=== PATIENT | male | born 1995 | race Caucasian/White ===

== ENCOUNTER 2017-12-22 13:29 | Emergency (ER) | payer BC ==
[2017-12-22] MEDS ORDERED: Tetan/Diph/Pertus SYR(Tdap)* 0.5 ML SYR(BOOSTRIX) use SYR IM ONE (16:38)
--- NOTE | 2017-12-22 17:17 | RAD ---
Indication: Laceration to the top of the patella. Pain and decreased range of motion. Comparison: No relevant prior exams available on the [facility] for comparison. Technique: AP and lateral views RIGHT knee. REPORT AND IMPRESSION: Anterior soft tissue swelling and subtle skin contour irregularity anterior to the patella consistent with history of laceration. No subcutaneous emphysema or conspicuous foreign body evident. Negative for joint effusion, fracture, or malalignment.
[2017-12-22 18:14] VITALS: BP 132/77
--- NOTE | 2017-12-23 10:55 | ED ---
Jenise Puckett Edward, scribed for Jesse Middleton MD on 12/22/17 at 1553 . Lower Extremity - HPI Summary HPI Summary: 22 y/o male presents to the ED c/o R knee laceration s/p sledding accident earlier today. Pt states there is no pain at rest, aggravated with movement. Pt fell off the side of the road while sledding. - History of Current Complaint Chief Complaint: EDExtremityLower Stated Complaint: RT KNEE INJURY Time Seen by Provider: 12/22/17 14:58 Hx Obtained From: Patient Pain Intensity: 2 PMH/Surg Hx/FS Hx/Imm Hx Previously Healthy: No Endocrine/Hematology History: Denies: Hx Diabetes Cardiovascular History: Denies: Hx Myocardial Infarction - Surgical History Surgery Procedure, Year, and Place: APPY Infectious Disease History: No Infectious Disease History: Denies: Traveled Outside the [place] in Last 30 Days - Family History Known Family History: Positive: None - Social History Alcohol Use: None Hx Substance Use: Yes Substance Use Type: Reports: Marijuana Review of Systems Constitutional: Negative Eyes: Negative ENT: Negative Cardiovascular: Negative Respiratory: Negative Gastrointestinal: Negative Genitourinary: Negative Positive: Arthralgia - R knee pain with movement Positive: Other - R knee laceration Neurological: Negative Psychological: Normal All Other Systems Reviewed And Are Negative: Yes Physical Exam - Summary Physical Exam Summary: VITAL SIGNS: Reviewed. GENERAL: Patient is a well-developed and nourished male who is lying comfortable in the stretcher. Patient is not in any acute respiratory distress. HEAD AND FACE: No signs of trauma. No ecchymosis, hematomas or skull depressions. No sinus tenderness. EYES: PERRLA, EOMI x 2, No injected conjunctiva, no nystagmus. EARS: Hearing grossly intact. Ear canals and tympanic membranes are within normal limits. MOUTH: Oropharynx within normal limits. NECK: Supple, trachea is midline, no adenopathy, no JVD, no carotid bruit, no c- spine tenderness, neck with full ROM. CHEST: Symmetric, no tenderness at palpation LUNGS: Clear to auscultation bilaterally. No wheezing or crackles. CVS: Regular rate and rhythm, S1 and S2 present, no murmurs or gallops appreciated. ABDOMEN: Soft, non-tender. No signs of distention. No rebound no guarding, and no masses palpated. Bowel sounds are normal. EXTREMITIES: FROM in all major joints, no edema, no cyanosis or clubbing. NEURO: Alert and oriented x 3. No acute neurological deficits. Speech is normal and follows commands. SKIN: Skin laceration @ R knee w/ full ROM. Slight TTP. Triage Information Reviewed: Yes Vital Signs On Initial Exam: Initial Vitals Temp Pulse Resp BP Pulse Ox 98.6 F 108 16 146/81 100 12/22/17 13:39 12/22/17 13:39 12/22/17 13:39 12/22/17 13:39 12/22/17 13:39 Vital Signs Reviewed: Yes Procedures - Laceration/Wound Repair 1 Location: lower extremity - R knee Description: Linear Anesthesia: Lido Irrigated w/ Saline (ccs): 500 Laceration/Wound Explored: clean Closure: Single Layer Suture Type: Other - Ethylon Number of Sutures: 8 Diagnostics - Vital Signs Vital Signs Temp Pulse Resp BP Pulse Ox 12/22/17 13:39 98.6 F 108 16 146/81 100 - Laboratory Lab Statement: Any lab studies that have been ordered have been reviewed, and results considered in the medical decision making process. - Radiology KNEE XR Xray Interpretation: Positive (See Comments) - Anterior soft tissue swelling and subtle skin contour irregularity anterior to the patella consistent with history of laceration. No subcutaneous emphysema or conspicuous foreign body evident. Negative for joint effusion, fracture, or malalignment. Radiology Interpretation Completed By: Radiologist Lower Extremity Course/Dx - Course Assessment/Plan: 22 y/o male presents to the ED c/o R knee laceration s/p sledding accident earlier today. Pt states there is no pain at rest, aggravated with movement. Pt fell off the side of the road while sledding. KNEE XR SHOWS Anterior soft tissue swelling and subtle skin contour irregularity anterior to the patella consistent with history of laceration. No subcutaneous emphysema or conspicuous foreign body evident. Negative for joint effusion, fracture, or malalignment. Using sterile techniques I irrigated the wound with 500 cc, I put 8 sutures 4-0 ethylon after infiltrating wound with lidocaine without epi 5 cc s. Pt was given tetanus vaccine booster. Pt was d/c home with f/u with PCP. Since the pt has a dirty wound the pt will be given Keflex for 10 days. - Diagnoses Provider Diagnoses: Knee laceration Discharge - Discharge Plan Condition: Stable Disposition: HOME Prescriptions: Cephalexin CAP* [Keflex CAP*] 250 mg PO QID #28 cap Patient Education Materials: Care For Your Stitches (ED), Laceration (ED), Knee Pain (ED) Forms: *Work Release Referrals: Yesenia London NP [Primary Care Provider] - 4 Days (PLEASE F/U IN 3-5 DAYS) The documentation as recorded by the Jenise villa Edward accurately reflects the service I personally performed and the decisions made by Kane sutton Walter, MD.
== END 2017-12-22 18:13 | disposition home or self-care (01) ==
LOC: EDBD → ED 13:29
DX: S81.011A Laceration without foreign body, right knee, initial encounter (principal); V00.221A Fall from sled, initial encounter; Y93.23 Activity, snow (alpine) (downhill) skiing, snowboarding, sledding, tobogganing and snow tubing; Y92.9 Unspecified place or not applicable; Z23 Encounter for immunization
CPT/HCPCS: 12001; 90471; 90715; 99282